=== PATIENT | female | born 1990 | race Caucasian/White ===

== ENCOUNTER 2020-06-08 13:43 | Emergency (ER) | payer SELFPAY ==
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
--- NOTE | 2020-06-08 14:45 | RAD REPORT ---
EXAM DESCRIPTION: Samantha Agustin And Lat (2 Views)06/08/2020 2:16 pm CLINICAL HISTORY: Chest pain COMPARISON: None FINDINGS: 4 millimeter nodular opacity right upper lobe. The remainder of the lungs appear clear of acute infiltrate. The heart is normal size IMPRESSION: 4 millimeter nodular opacity right upper lobe. Followup chest film in 6 months recommend ed for re-evaluation
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
[2020-06-08 15:13] VITALS: BP 135/92; TEMP 98.4; O2SAT 100
[2020-06-08] MEDS ORDERED: HYDROCODONE/APAP 10/325 TAB ONE (15:13)
== END 2020-06-08 15:08 | disposition home or self-care (01) ==
LOC: ER 13:43
DX: R07.89 Other chest pain (principal); V49.40XA Driver injured in collision with unspecified motor vehicles in traffic accident, initial encounter
CPT/HCPCS: 70450; 71046; 72125; 99284